=== PATIENT | female | born 1970 | race African-American/Black ===

== ENCOUNTER 2016-12-18 08:24 | Inpatient (IN) | payer OTHER ==
[2016-12-18 09:58] VITALS: BMI 19.3
--- NOTE | 2016-12-18 12:03 | HP ---
CIWA Score - CIWA Score Nausea/Vomitin-No Nausea/No Vomiting Muscle Tremors: 4-Moderate,w/Arms Extend Anxiety: 4-Mod. Anxious/Guarded Agitation: 4-Moderately Restless Paroxysmal Sweats: 3 Orientation: 0-Oriented Tacttile Disturbances: 0-None Auditory Disturbances: 0-None Visual Disturbances: 0-None Headache: 0-None Present CIWA-Ar Total Score: 15 Admission ROS BHS - HPI Chief Complaint: I am tired of drinking alcohol. Allergies/Adverse Reactions: Allergies Allergy/AdvReac Type Severity Reaction Status Date / Time aspirin Allergy Severe Difficulty Verified 12/18/16 10:15 Breathing History of Present Illness: pt is a 46yr old male with a history of alcohol dependence seeking detox for treatment. Exam Limitations: No Limitations - Ebola screening Have you traveled outside of the country in the last 21 days: No Have you had contact with anyone from an Ebola affected area: No Have you been sick,other than usual withdrawal symptoms: No Do you have a fever: No - Review of Systems Constitutional: Chills, Loss of Appetite, Night Sweats, Changes in sleep, Unintentional Wgt. Loss EENT: reports: No Symptoms Reported Respiratory: reports: Cough, Productive cough (clear) Cardiac: reports: No Symptoms Reported GI: reports: Constipated, Poor Appetite, Poor Fluid Intake : reports: No Symptoms Reported Musculoskeletal: reports: Joint Pain Integumentary: reports: Flushing, Sweating Neuro: reports: Tingling, Tremors Endocrine: reports: Excessive Sweating, Flushing, Intolerance to Cold, Intolerance to Heat Hematology: reports: No Symptoms Reported Psychiatric: reports: Judgement Intact, Mood/Affect Appropiate, Orientated x3, Agitated, Anxious Other Systems: Reviewed and Negative Patient History - Patient Medical History Hx Anemia: No Hx Asthma: Yes Hx Chronic Obstructive Pulmonary Disease (COPD): No Hx Cancer: No Hx Cardiac Disorders: No Hx Congestive Heart Failure: No Hx Hypertension: No Hx Hypercholesterolemia: No Hx Pacemaker: No HX Cerebrovascular Accident: No Hx Seizures: No Hx Dementia: No Hx Diabetes: No Hx Gastrointestinal Disorders: No Hx Liver Disease: No Hx Genitourinary Disorders: No Hx Sexually Transmitted Disorders: No Hx Renal Disease (ESRD): No Hx Thyroid Disease: No Hx Human Immunodeficiency Virus (HIV): No Hx Hepatitis C: No Hx Depression: Yes Hx Suicide Attempt: Yes (cut left wrist at age 19) Hx Bipolar Disorder: Yes Hx Schizophrenia: No Other Medical History: ptsd - Patient Surgical History Past Surgical History: No Hx Neurologic Surgery: No Hx Cataract Extraction: No Hx Cardiac Surgery: No Hx Lung Surgery: No Hx Breast Surgery: No Hx Breast Biopsy: No Hx Abdominal Surgery: No Hx Appendectomy: No Hx Cholecystectomy: No Hx Genitourinary Surgery: No Hx Section: No Hx Orthopedic Surgery: No Anesthesia Reaction: No - PPD History Previous Implant?: Yes Documented Results: Positive w/o proof Implanted On Prior [facility] Admission?: No Date: 12/21/16 Results: cxr PPD to be Administered?: No - Reproductive History Patient is a Female of Child Bearing Age (11 -55 yrs old): Yes Last Menstrual Period: 09/26/16 Patient : No - Smoking Cessation Smoking history: Current every day smoker Have you smoked in the past 12 months: Yes Aproximately how many cigarettes per day: 20 Hx Chewing Tobacco Use: No Initiated information on smoking cessation: Yes 'Breaking Loose' booklet given: 12/18/16 - Substance & Tx. History Hx Alcohol Use: Yes Hx Substance Use: No Substance Use Type: Alcohol Hx Substance Use Treatment: Yes - Substances Abused Alcohol-vodka Route: Oral Frequency: Daily Amount used: 3 pts. vodka Age of first use: 45 Date of Last Use: 12/17/16 Family Disease History - Family Disease History Family History: Denies Admission Physical Exam BHS - Vital Signs Vital Signs: Vital Signs - 24 hr 12/18/16 09:51 Temperature 97.1 F L Pulse Rate 79 Respiratory 18 Rate Blood Pressure 140/77 - Physical General Appearance: Yes: Appropriately Dressed, Moderate Distress, Thin, Tremorous, Irritable, Sweating, Anxious HEENTM: Yes: Hearing grossly Normal, Rhinorrhea Respiratory: Yes: Lungs Clear, Normal Breath Sounds, No Respiratory Distress Neck: Yes: No masses,lesions,Nodules Breast: Yes: Within Normal Limits Cardiology: Yes: Regular Rhythm, Regular Rate, S1, S2 Abdominal: Yes: Non Tender Genitourinary: Yes: Within Normal Limits Back: Yes: Normal Inspection Musculoskeletal: Yes: full range of Motion Extremities: Yes: Normal Inspection, Tremors Neurological: Yes: Fully Oriented, Alert, Normal Response Integumentary: Yes: Diaphoresis Lymphatic: Yes: Within Normal Limits - Diagnostic (1) Alcohol dependence with uncomplicated withdrawal Current Visit: Yes Status: Chronic (2) Nicotine dependence Current Visit: Yes Status: Chronic Qualifiers: Nicotine product type: cigarettes Substance use status: uncomplicated Qualified Code(s): F17.210 - Nicotine dependence, cigarettes, uncomplicated (3) Asthma Current Visit: Yes Status: Chronic Qualifiers: Asthma complication type: uncomplicated Cleared for Admission [facility] - Detox or Rehab [facility] Level of Care: Medically Managed Detox Regimen/Protocol: Librium S Breath Alcohol Content Breath Alcohol Content: 0.198 Urine Pregancy Test - Result Urine Test Results: Negative- NO Line Present Urine Drug Screen - Results Drug Screen Negative: Yes
[2016-12-18] MEDS ORDERED: MAGNESIUM HYDROX 2400MG/30ML ORAL SUSPENSION 30 ML CUP PO PRN (12:06)
[2016-12-18] MEDS ORDERED: NICOTINE POLACRILEX 4 MG GUM BC PRN (12:06)
[2016-12-18] MEDS ORDERED: MAGNESIUM CITRATE 300 ML BOTTLE PO PRN (12:06)
[2016-12-18] MEDS ORDERED: IBUPROFEN 400 MG TABLET (FP) PO PRN (12:06)
[2016-12-18] MEDS ORDERED: LOPERAMIDE HCL 2 MG CAPSULE PO PRN (12:06)
[2016-12-18] MEDS ORDERED: hydrOXYzine PAMOATE 50 MG CAPSULE (FP) PO PRN (12:06)
[2016-12-18] MEDS ORDERED: MENTHOL/PHENOL 1 EACH UD MM PRN (12:06)
[2016-12-18] MEDS ORDERED: diphenhydrAMINE HCL 50 MG CAPSULE PO PRN (12:06)
[2016-12-18] MEDS ORDERED: ACETAMINOPHEN 325 MG TABLET (FP) PO PRN (12:06)
[2016-12-18] MEDS ORDERED: P-EPHED 60MG/TRIPROLIDI 2.5MG TABLET PO PRN (12:06)
[2016-12-18] MEDS ORDERED: chlordiazePOXIDE HCL 25 MG CAPSULE PO PRN (12:06)
[2016-12-18] MEDS ORDERED: guaiFENesin/D-METHORPHAN HB 10 ML UNIT-DOSE CUPS PO PRN (12:06)
[2016-12-18 16:45] LABS: URINE APPEARANCE CLEAR; URINE BILIRUBIN NEGATIVE (NEGATIVE); URINE BLOOD NEGATIVE (NEGATIVE); URINE COLOR YELLOW; URINE GLUCOSE (UA) NEGATIVE (NEGATIVE); URINE KETONE NEGATIVE (NEGATIVE); URINE LEUK ESTERASE NEGATIVE (NEGATIVE); URINE NITRITE NEGATIVE (NEGATIVE); URINE PROTEIN NEGATIVE (NEGATIVE); URINE UROBILINOGEN 2.0 E.U/dl E.U./dl (0.2-1.0)
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
[2016-12-18] MEDS: chlordiazePOXIDE HCL 25 MG CAPSULE PO SCH ×2 (17:21→22:16)
[2016-12-18] MEDS: ALBUTEROL SO4 6.7 GM HFA INHALER IH PRN (21:38)
[2016-12-18] MEDS: ZOLPIDEM TARTRATE 5 MG TABLET PO PRN (22:16)
[2016-12-18] MEDS: THIAMINE HCL 100 MG TABLET (FP) PO SCH (22:17)
[2016-12-18] MEDS: risperiDONE 1 MG TABLET (FP) PO SCH (22:17)
[2016-12-19] MEDS: chlordiazePOXIDE HCL 25 MG CAPSULE PO SCH ×4 (05:52→22:31)
[2016-12-19] MEDS ORDERED: PARoxetine HCL 10 MG TABLET (FP) PO SCH (10:00)
[2016-12-19 10:32] LABS: MCH 37.8 pg (25.7-33.7); MCHC 33.5 g/dl (32.0-36.0); MEAN CELL VOLUME 112.8 fl (80-96); MEAN PLT VOLUME 9.2 fl (7.5-11.1); PLATELET COUNT 70 K/MM3 (134-434); RDW 13.8 % (11.6-15.6); WHITE BLOOD COUNT 3.5 K/mm3 (4.0-10.0)
[2016-12-19] MEDS: NICOTINE 21 MG/24 HOURS TOPICAL PATCH TD SCH (10:33)
[2016-12-19] MEDS: PARoxetine HCL 20 MG TABLET (FP) PO SCH (10:33)
[2016-12-19] MEDS: PRENATAL VITAMINS W/ FOLIC ACID TABLET (FP) PO SCH (10:33)
[2016-12-19 10:58] LABS: ALBUMIN 3.6 g/dl (3.4-5.0); ANION GAP 11 (8-16); CO2 32 mmol/L (21-32); GLUCOSE,RANDOM 115 mg/dL (74-106)
[2016-12-19 11:01] LABS: ALK PHOS 91 U/L (45-117); BILIRUBIN,TOTAL 0.5 mg/dL (0.2-1.0); CREATININE 0.8 mg/dL (0.55-1.02); SGOT/AST 356 U/L (15-37); SGPT/ALT 82 U/L (12-78); TOT PROT 7.6 g/dl (6.4-8.2)
[2016-12-19 11:19] LABS: ANISOCYTOSIS 1+; PLATELET ESTIMATE DECREASED (NORMAL)
--- NOTE | 2016-12-19 12:28 | EKG ---
Test Reason : Blood Pressure : / mmHG Vent. Rate : 069 BPM Atrial Rate : 069 BPM P-R Int : 146 ms QRS Dur : 078 ms QT Int : 412 ms P-R-T Axes : 069 070 067 degrees QTc Int : 441 ms POOR DATA QUALITY, INTERPRETATION MAY BE ADVERSELY AFFECTED NORMAL SINUS RHYTHM NORMAL ECG NO PREVIOUS ECGS AVAILABLE Confirmed by ROSLYN CASTELLANOS MD ([id number]) on 12/19/2016 12:28:45 PM Referred By: Confirmed By:ROSLYN CASTELLANOS MD
[2016-12-19] MEDS ORDERED: POTASSIUM CHLORIDE TABS 20 MEQ TABLET.ER (FP) PO ONE (12:46)
--- NOTE | 2016-12-19 12:46 | PN ---
S CIWA - CIWA Score Nausea/Vomitin Muscle Tremors: 3 Anxiety: 3 Agitation: 2 Paroxysmal Sweats: 1-Minimal Palms Moist Orientation: 0-Oriented Tacttile Disturbances: 1-Very Mild Itch/Numbness Auditory Disturbances: 1-Very Mild Visual Disturbances: 1-Very Mild Sensitivity Headache: 2-Mild CIWA-Ar Total Score: 17 BHS Progress Note (SOAP) Subjective: ALERT,IRRITABLE,ANXIOUS,TREMOR,PAIN IN THE BODY,INTERRUPTED SLEEP Objective: 12/19/16 12:49 Vital Signs Temperature 98.4 F 12/19/16 10:00 Pulse Rate 106 H 12/19/16 10:00 Respiratory Rate 18 12/19/16 10:00 Blood Pressure 131/74 12/19/16 10:00 O2 Sat by Pulse Oximetry (%) 12/19/16 13:07 EKG NSR,NORMAL ECG Laboratory Last Values WBC 3.5 K/mm3 (4.0-10.0) L 12/19/16 06:00 RBC 3.47 M/mm3 (3.60-5.2) L 12/19/16 06:00 Hgb 13.1 GM/dL (10.7-15.3) 12/19/16 06:00 Hct 39.2 % (32.4-45.2) 12/19/16 06:00 MCV 112.8 fl (80-96) H 12/19/16 06:00 MCHC 33.5 g/dl (32.0-36.0) 12/19/16 06:00 RDW 13.8 % (11.6-15.6) 12/19/16 06:00 Plt Count 70 K/MM3 (134-434) L 12/19/16 06:00 MPV 9.2 fl (7.5-11.1) 12/19/16 06:00 Platelet Estimate Decreased (NORMAL) 12/19/16 06:00 Platelet Comment No clumping noted 12/19/16 06:00 Anisocytosis 1+ 12/19/16 06:00 Macrocytosis 2+ 12/19/16 06:00 Sodium 144 mmol/L (136-145) 12/19/16 06:00 Potassium 3.2 mmol/L (3.5-5.1) L 12/19/16 06:00 Chloride 101 mmol/L (98-107) 12/19/16 06:00 Carbon Dioxide 32 mmol/L (21-32) 12/19/16 06:00 Anion Gap 11 (8-16) 12/19/16 06:00 BUN 8 mg/dL (7-18) 12/19/16 06:00 Creatinine 0.8 mg/dL (0.55-1.02) 12/19/16 06:00 Creat Clearance w eGFR > 60 (>60) 12/19/16 06:00 Random Glucose 115 mg/dL (74-106) H 12/19/16 06:00 Calcium 8.0 mg/dL (8.5-10.1) L 12/19/16 06:00 Total Bilirubin 0.5 mg/dL (0.2-1.0) 12/19/16 06:00 AST 356 U/L (15-37) H 12/19/16 06:00 ALT 82 U/L (12-78) H 12/19/16 06:00 Alkaline Phosphatase 91 U/L (45-117) 12/19/16 06:00 Total Protein 7.6 g/dl (6.4-8.2) 12/19/16 06:00 Albumin 3.6 g/dl (3.4-5.0) 12/19/16 06:00 Urine Color Yellow 12/18/16 13:00 Urine Appearance Clear 12/18/16 13:00 Urine pH 6.0 (5.0-8.0) 12/18/16 13:00 Ur Specific [place] 1.018 (1.001-1.035) 12/18/16 13:00 Urine Protein Negative (NEGATIVE) 12/18/16 13:00 Urine Glucose (UA) Negative (NEGATIVE) 12/18/16 13:00 Urine Ketones Negative (NEGATIVE) 12/18/16 13:00 Urine Blood Negative (NEGATIVE) 12/18/16 13:00 Urine Nitrite Negative (NEGATIVE) 12/18/16 13:00 Urine Bilirubin Negative (NEGATIVE) 12/18/16 13:00 Urine Urobilinogen 2.0 e.u/dl E.U./dl (0.2-1.0) H 12/18/16 13:00 Ur Leukocyte Esterase Negative (NEGATIVE) 12/18/16 13:00 LABS PENDING 12/19/16 13:09 Assessment: 12/19/16 13:09 WITHDRAWAL SYMPTOM 12/19/16 13:09 Plan: CONTINUE DETOX,K IS 3.2 HYPOKALEMIA KDUR 20 MEQ PO NOW THEN BID,REPEAT CMP,INR IN AM FOR TRANSAMINASEMIA
[2016-12-19] MEDS ORDERED: CYCLOBENZAPRINE HCL 10 MG TABLET (FP) PO ONE (17:29)
[2016-12-19] MEDS: POTASSIUM CHLORIDE TABS 20 MEQ TABLET.ER (FP) PO SCH (22:31)
[2016-12-19] MEDS: risperiDONE 1 MG TABLET (FP) PO SCH (22:32)
[2016-12-19] MEDS: THIAMINE HCL 100 MG TABLET (FP) PO SCH (22:33)
[2016-12-20] MEDS: chlordiazePOXIDE HCL 25 MG CAPSULE PO SCH ×2 (04:45→10:27)
[2016-12-20] MEDS: ALBUTEROL SO4 6.7 GM HFA INHALER IH PRN (08:48)
[2016-12-20] MEDS: NICOTINE 21 MG/24 HOURS TOPICAL PATCH TD SCH (10:26)
[2016-12-20] MEDS: PRENATAL VITAMINS W/ FOLIC ACID TABLET (FP) PO SCH (10:26)
[2016-12-20] MEDS: PARoxetine HCL 20 MG TABLET (FP) PO SCH (10:27)
[2016-12-20] MEDS: POTASSIUM CHLORIDE TABS 20 MEQ TABLET.ER (FP) PO SCH ×2 (10:27→22:23)
[2016-12-20 10:45] LABS: INR 1.01 (0.82-1.09); PROTHROMBIN TIME (PATIENT) 11.1 SEC (9.98-11.88)
[2016-12-20 10:52] LABS: ALBUMIN 3.1 g/dl (3.4-5.0); ALK PHOS 79 U/L (45-117); ANION GAP 8 (8-16); CALCIUM 8.2 mg/dL (8.5-10.1); CO2 33 mmol/L (21-32); CREATININE 0.8 mg/dL (0.55-1.02); GLUCOSE,RANDOM 78 mg/dL (74-106); SGOT/AST 118 U/L (15-37); SGPT/ALT 53 U/L (12-78); TOT PROT 6.5 g/dl (6.4-8.2)
--- NOTE | 2016-12-20 13:07 | PN ---
[facility] CIWA - CIWA Score Nausea/Vomitin Muscle Tremors: 3 Anxiety: 3 Agitation: 2 Paroxysmal Sweats: 1-Minimal Palms Moist Orientation: 0-Oriented Tacttile Disturbances: 1-Very Mild Itch/Numbness Auditory Disturbances: 1-Very Mild Visual Disturbances: 1-Very Mild Sensitivity Headache: 2-Mild CIWA-Ar Total Score: 17 BHS Progress Note (SOAP) Subjective: ALERT,IRRITABLE,ANXIOUS,INTERRUPTED SLEEP,TREMOR Objective: 12/20/16 13:05 Vital Signs Temperature 97.7 F 12/20/16 10:51 Pulse Rate 96 H 12/20/16 10:51 Respiratory Rate 18 12/20/16 10:51 Blood Pressure 126/69 12/20/16 10:51 O2 Sat by Pulse Oximetry (%) Laboratory Last Values WBC 3.5 K/mm3 (4.0-10.0) L 12/19/16 06:00 RBC 3.47 M/mm3 (3.60-5.2) L 12/19/16 06:00 Hgb 13.1 GM/dL (10.7-15.3) 12/19/16 06:00 Hct 39.2 % (32.4-45.2) 12/19/16 06:00 MCV 112.8 fl (80-96) H 12/19/16 06:00 MCHC 33.5 g/dl (32.0-36.0) 12/19/16 06:00 RDW 13.8 % (11.6-15.6) 12/19/16 06:00 Plt Count 70 K/MM3 (134-434) L 12/19/16 06:00 MPV 9.2 fl (7.5-11.1) 12/19/16 06:00 Platelet Estimate Decreased (NORMAL) 12/19/16 06:00 Platelet Comment No clumping noted 12/19/16 06:00 Anisocytosis 1+ 12/19/16 06:00 Macrocytosis 2+ 12/19/16 06:00 INR 1.01 (0.82-1.09) 12/20/16 07:45 Sodium 144 mmol/L (136-145) 12/20/16 07:45 Potassium 3.5 mmol/L (3.5-5.1) 12/20/16 07:45 Chloride 103 mmol/L (98-107) 12/20/16 07:45 Carbon Dioxide 33 mmol/L (21-32) H 12/20/16 07:45 Anion Gap 8 (8-16) 12/20/16 07:45 BUN 5 mg/dL (7-18) L D 12/20/16 07:45 Creatinine 0.8 mg/dL (0.55-1.02) 12/20/16 07:45 Creat Clearance w eGFR > 60 (>60) 12/20/16 07:45 Random Glucose 78 mg/dL (74-106) D 12/20/16 07:45 Calcium 8.2 mg/dL (8.5-10.1) L 12/20/16 07:45 Total Bilirubin 1.0 mg/dL (0.2-1.0) D 12/20/16 07:45 AST 118 U/L (15-37) H D 12/20/16 07:45 ALT 53 U/L (12-78) D 12/20/16 07:45 Alkaline Phosphatase 79 U/L (45-117) 12/20/16 07:45 Total Protein 6.5 g/dl (6.4-8.2) 12/20/16 07:45 Albumin 3.1 g/dl (3.4-5.0) L 12/20/16 07:45 Urine Color Yellow 12/18/16 13:00 Urine Appearance Clear 12/18/16 13:00 Urine pH 6.0 (5.0-8.0) 12/18/16 13:00 Ur Specific [place] 1.018 (1.001-1.035) 12/18/16 13:00 Urine Protein Negative (NEGATIVE) 12/18/16 13:00 Urine Glucose (UA) Negative (NEGATIVE) 12/18/16 13:00 Urine Ketones Negative (NEGATIVE) 12/18/16 13:00 Urine Blood Negative (NEGATIVE) 12/18/16 13:00 Urine Nitrite Negative (NEGATIVE) 12/18/16 13:00 Urine Bilirubin Negative (NEGATIVE) 12/18/16 13:00 Urine Urobilinogen 2.0 e.u/dl E.U./dl (0.2-1.0) H 12/18/16 13:00 Ur Leukocyte Esterase Negative (NEGATIVE) 12/18/16 13:00 RPR Titer Nonreactive (NONREACTIVE) 12/19/16 06:00 Assessment: 12/20/16 13:05 WITHDRAWAL SYMPTOM Plan: CONTINUE DETOX AND K REPLACEMENT
[2016-12-20] MEDS: CYCLOBENZAPRINE HCL 10 MG TABLET (FP) PO PRN (17:20)
[2016-12-20] MEDS: chlordiazePOXIDE 5 MG CAPSULE PO SCH ×2 (17:20→22:23)
[2016-12-20] MEDS: risperiDONE 1 MG TABLET (FP) PO SCH (22:23)
[2016-12-20] MEDS: ZOLPIDEM TARTRATE 5 MG TABLET PO PRN (22:23)
[2016-12-20] MEDS: THIAMINE HCL 100 MG TABLET (FP) PO SCH (22:23)
[2016-12-21] MEDS: chlordiazePOXIDE 5 MG CAPSULE PO SCH ×2 (05:46→10:08)
[2016-12-21] MEDS: PRENATAL VITAMINS W/ FOLIC ACID TABLET (FP) PO SCH (10:08)
[2016-12-21] MEDS: POTASSIUM CHLORIDE TABS 20 MEQ TABLET.ER (FP) PO SCH ×2 (10:09→22:29)
[2016-12-21] MEDS: PARoxetine HCL 20 MG TABLET (FP) PO SCH (10:09)
[2016-12-21] MEDS: NICOTINE 21 MG/24 HOURS TOPICAL PATCH TD SCH (10:10)
--- NOTE | 2016-12-21 10:14 | PN ---
BHS Progress Note (SOAP) Subjective: weak sweats diarrhea Objective: 12/21/16 10:13 Vital Signs Temperature 99.0 F 12/21/16 06:00 Pulse Rate 66 12/21/16 06:00 Respiratory Rate 16 12/21/16 06:00 Blood Pressure 112/63 12/21/16 06:00 O2 Sat by Pulse Oximetry (%) awake/alert ambulating no acute distress Assessment: 12/21/16 10:13 withdrawal sx Plan: continue detox increase fluids immodium prn d/c in am
[2016-12-21] MEDS ORDERED: METHYL SALICYLATE/MENTHOL OINT 30 GM TUBE TP ONE ×2 (12:30→13:15)
[2016-12-21] MEDS: ALBUTEROL SO4 6.7 GM HFA INHALER IH PRN (15:40)
[2016-12-21] MEDS: chlordiazePOXIDE HCL 10 MG CAPSULE PO SCH ×2 (17:25→22:29)
[2016-12-21] MEDS: MAG HYDROX/AL HYDROX/SIMETH 30 ML UNIT-DOSE CUP PO PRN ×2 (17:26→22:55)
[2016-12-21] MEDS ORDERED: METHYL SALICYLATE/MENTHOL OINT 30 GM TUBE TP SCH (22:00)
[2016-12-21] MEDS: CYCLOBENZAPRINE HCL 10 MG TABLET (FP) PO PRN (22:29)
[2016-12-21] MEDS: risperiDONE 1 MG TABLET (FP) PO SCH (22:29)
[2016-12-21] MEDS: THIAMINE HCL 100 MG TABLET (FP) PO SCH (22:29)
[2016-12-22] MEDS: chlordiazePOXIDE HCL 10 MG CAPSULE PO SCH (05:41)
[2016-12-22 06:31] VITALS: BP 117/68; PULSE 72; TEMP 97.6
--- NOTE | 2016-12-22 08:45 | DS ---
[facility] Detox Discharge Summary Admission Date: 12/18/16 Discharge Date: 12/22/16 - History Present History: Alcohol Dependence - Physical Exam Results Vital Signs: Vital Signs Temperature 97.6 F 12/22/16 06:30 Pulse Rate 72 12/22/16 06:30 Respiratory Rate 18 12/22/16 06:30 Blood Pressure 117/68 12/22/16 06:30 O2 Sat by Pulse Oximetry (%) - Treatment Hospital Course: Detox Protocol Followed, Detoxed Safely, Responded well, Discharged Condition Good, Rehab Referral Accepted - Medication Discharge Medications: Ambulatory Orders Albuterol Sulfate Inhaler - [Ventolin Hfa Inhaler -] 2 inh PO Q4H PRN 12/18/16 Paroxetine HCl [Paxil -] 30 mg PO DAILY #30 tablet 12/18/16 Risperidone [Risperdal] 1 mg PO HS #30 tablet 12/18/16 - Diagnosis (1) Alcohol dependence with uncomplicated withdrawal Status: Chronic (2) Nicotine dependence Status: Chronic Qualifiers: Nicotine product type: cigarettes Substance use status: uncomplicated Qualified Code(s): F17.210 - Nicotine dependence, cigarettes, uncomplicated (3) Asthma Status: Chronic Qualifiers: Asthma complication type: uncomplicated - AMA Did Patient Leave Against Medical Advice: No
== END 2016-12-22 07:00 | disposition home or self-care (01) | DRG 775 ==
LOC: YASAS 08:24 → Y6N 13:28
PROVIDERS: ADMIT Internal Medicine; ATTEND Internal Medicine
PROC: HZ2ZZZZ Detoxification Services for Substance Abuse Treatment (ICD-10-PCS; principal; 2016-12-22)
DX: F10.230 Alcohol dependence with withdrawal, uncomplicated (principal); F17.210 Nicotine dependence, cigarettes, uncomplicated; J45.909 Unspecified asthma, uncomplicated
CPT/HCPCS: 36415; 71020-TC; 80053; 81003; 85027; 85610; 86593; 93005; 93010; J2794